=== PATIENT | female | born 1935 | race Caucasian/White ===

== ENCOUNTER 2017-02-24 14:04 | Emergency (ER) | payer MEDICARE, OTHER ==
[~2017-02-24] VITALS: Ht 162.6 cm; Wt 77.1 kg
[~2017-02-24 14:04] MED LIST: HYDROCODON-ACE1 EA10 PO; LIOTHYRONINE SO5 MCG PO
[2017-02-24] MEDS ORDERED: HYDROCODON-ACE1 EAC8 PO (18:01)
[2017-02-24] MEDS ORDERED: ONDANSETRON ODT4 MG SL (18:02)
[2017-02-24] MEDS ORDERED: AUGMENTIN 875-1 EACH PO (18:02)
== END 2017-02-24 18:18 | disposition home or self-care (01) ==
LOC: ED 14:04
DX: M54.5 Low back pain (principal); G89.29 Other chronic pain; N06.9 Isolated proteinuria with unspecified morphologic lesion; Z76.0 Encounter for issue of repeat prescription; R11.0 Nausea; E03.9 Hypothyroidism, unspecified; Z79.899 Other long term (current) drug therapy
CPT/HCPCS: 74177; 80053; 81001; 85025; 87088; 96361; 96374; 96375; 96376; 99284; J0295; J1170; J2405; J2550; J7040; Q9967

== ENCOUNTER 2020-07-17 15:50 | Emergency (ER) | payer MEDICARE, OTHER ==
[~2020-07-17] VITALS: Ht 162.6 cm; Wt 77.1 kg
[~2020-07-17 15:50] MED LIST changes: +AUGMENTIN 875-1 EACH PO; +HYDROCODON-ACE1 EAC8 PO; +ONDANSETRON ODT4 MG SL
--- NOTE | 2020-07-18 17:29 | EKG ---
[facility] [address] [place], [place] [address] Signed Normal sinus rhythm with sinus arrhythmia Inferior infarct , age undetermined Abnormal ECG When compared with ECG of 24-DEC-2015 16:46, No significant change was found Confirmed by CHAN MCDUFFIE MD ([id number]) on 07/18/2020 5:28:45 PM Electronically Signed By: CHAN MCDUFFIE MD 07/18/20 1729 PATIENT NAME: JARVISALIE RUCKER Electrocardiogram DATE OF : 35 PHYSICIAN: CHAN MCDUFFIE MD REPORT #: [id number] REPORT IS CONFIDENTIAL AND NOT TO BE RELEASED WITHOUT AUTHORIZATION
== END 2020-07-17 18:55 | disposition home or self-care (01) ==
LOC: ED 15:50
DX: R07.81 Pleurodynia (principal); G47.00 Insomnia, unspecified; R35.0 Frequency of micturition; E03.9 Hypothyroidism, unspecified; I50.9 Heart failure, unspecified; Z87.891 Personal history of nicotine dependence
CPT/HCPCS: 71045; 80053; 81001; 83735; 83880; 84443; 84484; 85025; 93005; 93010; 99285-25

== ENCOUNTER 2022-12-11 14:34 | Emergency (ER) | payer MEDICARE, OTHER ==
[~2022-12-11] VITALS: Ht 162.6 cm; Wt 72.1 kg
[2022-12-11] MEDS ORDERED: LO-DOSE ASPIRIN81 MG PO (16:18)
[2022-12-11] MEDS ORDERED: DORZOLAMIDE HCL10 ML OD (16:19)
[2022-12-11] MEDS ORDERED: TIMOLOL MALEATE5 M2 OU (16:23)
[2022-12-11] MEDS ORDERED: LATANOPROST2.5 ML OU (16:23)
[2022-12-11 18:07] VITALS: BP 145/73
== END 2022-12-11 18:09 | disposition home or self-care (01) ==
LOC: ED 14:34
DX: R60.0 Localized edema (principal); Z87.891 Personal history of nicotine dependence; Z96.653 Presence of artificial knee joint, bilateral; Z91.040 Latex allergy status; Z88.8 Allergy status to other drugs, medicaments and biological substances; Z79.82 Long term (current) use of aspirin; Z79.899 Other long term (current) drug therapy
CPT/HCPCS: 93971

== ENCOUNTER 2022-12-30 17:47 | Emergency (ER) | payer MEDICARE, OTHER ==
[~2022-12-30] VITALS: Ht 162.6 cm; Wt 72.1 kg
--- OUTSIDE RECORDS SUMMARY | ~2022-12-30 | XMS | Continuity of Care Document ---
Demographics + + + | Address | [address] | | | [place] [address] | + + + | Preferred Language | Unknown | + + + | Marital Status | | + + + | Hoahaoism Affiliation | Unknown | + + + | Race | White | + + + | Ethnic Group | Not or | + + + Author + + + | Author | [facility] | + + + | Organization | [facility] | + + + | Address | [address] | | | [place] [address] | + + + | Phone | | + + + Care Team Providers + + + + | Care Cargo Broker Name | Role | Phone | + + + + Unavailable | Unavailable | + + + + Allergies No information. Encounters No information. Functional Status No information. Immunizations No information. Medications No information. Problems + + + + | date | description | facility | + + + + | 2022-12-11 14:35 | OTHER SPECIFIED SOFT | [facility] | | | TISSUE DISORDERS | | + + + + | 2022-12-11 14:35 | LOCALIZED EDE[facility] | [facility] | + + + + | 2022-12-11 14:35 | CLINICAL PROGRAM COORDINATOR (CURRENT) USE OF | [facility] | | | ASPIRIN | | + + + + | 2022-12-11 14:35 | OTHER SENIOR LIVING (CURRENT) | [facility] | | | DRUG THERAPY | | + + + + | 2022-12-11 14:35 | PERSONAL HISTORY OF | [facility] | | | NICOTINE DEPENDENCE | | + + + + | 2022-12-11 14:35 | ALLERGY STATUS TO OTH | [facility] | | | DRUG/MEDS/BIOL SUBST STATUS | | | | | | + + + + | 2022-12-11 14:35 | LATEX ALLERGY STATUS | [facility] | + + + + | 2022-12-11 14:35 | PRESENCE OF ARTIFICIAL | [facility] | | | KNEE JOINT, BILATERAL | | + + + + Procedures No information. Results/Labs No information. Social History +--------+ + + | date | description | facility | +--------+ + + Vital Signs No information."
[~2022-12-30 17:47] MED LIST changes: +DORZOLAMIDE HCL10 ML OD; +LATANOPROST2.5 ML OU; +LO-DOSE ASPIRIN81 MG PO; +TIMOLOL MALEATE5 M2 OU
[2022-12-30 18:19] LABS: BASOPHILS 0.3 % (0-2); EOSINOPHILS 0.1 % (0-6); HEMATOCRIT 37.4 % (35.0-50.0); HEMOGLOBIN 12.4 g/dL (12.0-18.0); LYMPHOCYTES 4.3 % (24-44); MCH 28.3 (27-36); MCHC 33.1 g/dl (30-36); MCV 85.5 fl (81-99); MONOCYTES 7.4 % (0-12); NEUTROPHILS 87.9 % (39-80); PLATELET COUNT 218 K/uL (140-440); RBC 4.37 M/ul (4.3-5.7); RDW 15.3 (10.5-15.0)
[2022-12-30 18:34] LABS: ALBUMIN 3.5 g/dL (3.4-5.0); ALBUMIN/GLOBULIN RATIO 1.06 (1.1-2.4); ANION GAP 12.5 (7-21); BILIRUBIN, TOTAL 0.6 ng/dL (0.2-1.0); BUN/CREATININE RATIO 17.2 (6.0-28.6); CALCIUM 9.2 mg/dL (8.5-10.1); CREATININE, SERUM 0.93 mg/dL (0.55-1.02); POTASSIUM 3.5 mmol/L (3.5-5.1); PROTEIN, TOTAL 6.8 g/dL (6.4-8.2)
[2022-12-30 18:37] LABS: LACTIC ACID, BLOOD 0.9 mmol/L (0.4-2.0)
--- OUTSIDE RECORDS SUMMARY | 2022-12-30 18:37 | XMS ---
PreManage Notification: ALIE CONLEY Security Franchise Manager Events No recent Security Events currently on file CRITERIA MET - [facility] - 2 Visits in 30 Days CARE PROVIDERS There are no care providers on record at this time. Aliza has no Care Guidelines for this patient. Urszula VISIT COUNT (12 MO.) 2 [facility] TOTAL 2 NOTE: Visits indicate total known visits. ED/C VISIT TRACKING (12 MO.) 12/30/2022 17:48 [facility] [place] TYPE: Emergency COMPLAINT: - FLU SYMPTOMS 12/11/2022 14:[address] [facility] [place] TYPE: Emergency COMPLAINT: - POST OP PROBLEM DIAGNOSES: - Allergy status to other drugs, medicaments and biological substances - Latex allergy status - Localized edema - jail (current) use of aspirin - Other intermediate (current) drug therapy - Other specified soft tissue disorders - Personal history of nicotine dependence - Presence of artificial knee joint, bilateral INPATIENT VISIT TRACKING (12 MO.) No inpatient visits to display in this time frame [id number]
[2022-12-30 18:59] LABS: INFLUENZA B NAA NEGATIVE (NEGATIVE); RESPIRATORY SYNCYTIAL VIR NAA NEGATIVE (NEGATIVE)
[2022-12-30 21:13] LABS: BILIRUBIN, URINE NEGATIVE (negative); BLOOD/HGB, URINE SMALL (Negative); KETONE, URINE NEGATIVE (Negative); LEUK ESTERASE, URINE NEGATIVE (negative); NITRITE, URINE NEGATIVE (negative)
[2022-12-30 21:18] LABS: HEMATOCRIT 33.1 % (35.0-50.0); HEMOGLOBIN 11.1 g/dL (12.0-18.0); MCH 28.4 (27-36); MCHC 33.4 g/dl (30-36); RBC 3.89 M/ul (4.3-5.7); RDW 14.8 (10.5-15.0)
[2022-12-30 21:23] LABS: BACTERIA, URINE RARE /hpf (negative); CASTS, URINE NONE SEEN \\lpf; COLLECTION TYPE, URINE CLEAN CATCH; CRYSTALS, URINE NONE SEEN (0-1+); EPITHELIAL CELLS, URINE SQUAMOUS 1+ /lpf (0-1+); REFLEX CULTURE, URINE No (No)
[2022-12-30] MEDS ORDERED: PAXLOVID 300-11 EACH PO (21:59)
[2022-12-30] MEDS ORDERED: CYCLOBENZAPRINE10 MG PO (22:00)
[2022-12-30] MEDS ORDERED: ONDANSETRON ODT8 MG PO (22:00)
[2022-12-30 22:30] VITALS: BP 106/52
== END 2022-12-30 22:30 | disposition home or self-care (01) ==
LOC: ED 17:47
PROVIDERS: Emergency Medicine; Family Medicine
DX: U07.1 COVID-19 (principal); E03.9 Hypothyroidism, unspecified; I50.9 Heart failure, unspecified; Z87.891 Personal history of nicotine dependence; Z88.8 Allergy status to other drugs, medicaments and biological substances; Z91.040 Latex allergy status; Z79.82 Long term (current) use of aspirin
CPT/HCPCS: 36415; 71045; 80053; 81001; 83605; 85025; 85027; 87502; 96374; 96375; 99284-25; A9270; C9803; J1885; J2405; J7121; U0002

== ENCOUNTER 2024-03-25 17:23 | Inpatient (IN) | payer MEDICARE, OTHER ==
[~2024-03-25] VITALS: Ht 162.6 cm; Wt 72.7 kg
[~2024-03-25 17:23] MED LIST changes: +CYCLOBENZAPRINE10 MG PO; -DORZOLAMIDE HCL10 ML OD; +DORZOLAMIDE HCL10 ML OU; +ONDANSETRON ODT8 MG PO; +PAXLOVID 300-11 EACH PO
[2024-03-25] MEDS ORDERED: fentaNYL citrate 100 MCG/2 ML VIAL ONE (17:29)
[2024-03-25 17:44] LABS: BASOPHILS 0.9 % (0-2); HEMATOCRIT 40.3 % (35.0-50.0); HEMOGLOBIN 13.7 g/dL (12.0-18.0); LYMPHOCYTES 28.6 % (24-44); MCH 29.7 (27-36); MCV 87.5 fl (81-99); MONOCYTES 8.2 % (0-12); NEUTROPHILS 60.3 % (39-80); PLATELET COUNT 213 K/uL (140-440); RDW 13.6 (10.5-15.0)
[2024-03-25] MEDS ORDERED: fentaNYL citrate 100 MCG/2 ML VIAL IV ONE (17:45)
[2024-03-25 17:48] LABS: INR 0.99 (0.80-1.30); PROTIME 12.6 Sec (11.2-14.2)
[2024-03-25 18:01] LABS: ALBUMIN 3.7 g/dL (3.4-5.0); ALBUMIN/GLOBULIN RATIO 1.16 (1.1-2.4); ANION GAP 12.6 (7-21); BILIRUBIN, TOTAL 0.6 ng/dL (0.2-1.0); BUN/CREATININE RATIO 24.09 (6.0-28.6); CALCIUM 9.1 mg/dL (8.5-10.1); CREATININE, SERUM 0.83 mg/dL (0.55-1.02); POTASSIUM 3.6 mmol/L (3.5-5.1); PROTEIN, TOTAL 6.9 g/dL (6.4-8.2)
[2024-03-25] MEDS ORDERED: LABETALOL HCL 20 MG/4 ML VIAL IV ONE ×2 (18:15→19:15)
[2024-03-26] MEDS ORDERED: MORPHINE SULFATE 4 MG/ML VIAL IV ONE (00:45)
[2024-03-26] MEDS ORDERED: ondansetron HCL 4 MG/2 ML VIAL IV ONE (00:45)
[2024-03-26] MEDS ORDERED: D5%-NACL 0.9% 20 KCL 1,000 ML IV SCH (07:15)
[2024-03-26] MEDS ORDERED: SODIUM CHLORIDE 0.9% 500 ML IV PRN (07:15)
[2024-03-26] MEDS ORDERED: HYDROCODON-ACE1 EA10 PO (08:11)
[2024-03-26] MEDS ORDERED: EZETIMIBE10 MG PO (09:39)
--- NOTE | 2024-03-26 10:15 | NUR ---
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 PATIENT HAS BEEN IN ER SINCE 03/25 EVENING. NOW ON COMFORT CARE. IVF DC'D. MONITOR DC'D. FAMILY MEMBERS ARE IN ROOM. UPON ADMIT PATIENT NON-VERBAL, ABLE TO FOLLOW SOME COMMANDS. LEFT SIDE IS STIFF, NOT ABLE TO MOVE LEFT SIDE. PUREWICK IS IN PLACE. HAVING BILE EMESIS ON ADMIT. TURNED ON LEFT SIDE. YANKER TIP WITH SUCTIONED USED. HAS OCC COUGH. ADMISSIONS PROCESS FOR COMFORT CARE STARTED. ORAL CARE GIVEN.
[2024-03-26] MEDS ORDERED: PROCHLORPERAZINE MALEATE 10 MG TAB PO PRN (11:00)
[2024-03-26] MEDS ORDERED: ARTIFICIAL TEARS 15 ML BTL OU PRN (11:00)
[2024-03-26] MEDS ORDERED: MORPHINE SULFATE 4 MG/ML VIAL IV PRN (11:00)
[2024-03-26] MEDS ORDERED: ATROPINE SULFATE 1% OPTH DROPS SL PRN (11:00)
[2024-03-26] MEDS ORDERED: LORazepam 2 MG/ML VIAL IV PRN (11:00)
[2024-03-26] MEDS ORDERED: fentaNYL citrate 100 MCG/2 ML VIAL IV PRN (11:00)
[2024-03-26] MEDS ORDERED: SCOPOLAMINE 1 MG/3 DAYS PATCH 1 EACH TDSY TD SCH (11:29)
[2024-03-26 11:32] VITALS: BP 136/88
[2024-03-26] MEDS ORDERED: PHARMACY RENAL DOSE ADJUSTMENT 1 DOSE MISC PO SCH (12:00)
[2024-03-26] MEDS ORDERED: ondansetron HCL 4 MG/2 ML VIAL IV PRN (12:45)
--- NOTE | 2024-03-26 12:45 | NUR ---
FENTANYL 25 MCG IV GIVEN FOR COMFORT AND SCOPOLMINE PATCH APPLIED BEHIND RIGHT EAR.
[2024-03-26] MEDS ORDERED: PROCHLORPERAZINE EDISYLATE 10 MG/2 ML VIAL IV PRN (13:00)
--- NOTE | 2024-03-26 13:10 | NUR ---
ZOFRAN 4 MG IV GIVEN.
--- NOTE | 2024-03-26 13:30 | NUR ---
REPOSITIONED TO RIGHT SIDE. UPON TURNING, HAD BILE GREEN EMESIS. TWO NURSING STAFF IN ROOM. LUKE SUCTIONED USED. AFTER THIS VOMITING EPISODE, TURNED BACK LEFT SIDE. NO CHANGES IN NEURO STATUS.
--- NOTE | 2024-03-26 14:26 | NUR ---
SLEEPING. NO DISTRESS NOTED. PATIENT SON AND DAUGHTER ARE IN ROOM.
[2024-03-26] MEDS ORDERED: ACETAMINOPHEN 650 MG SUPP PR PRN (18:30)
--- NOTE | 2024-03-26 19:00 | NUR ---
REPORT TO NEXT SHIFT. FAMILY IN ROOM. TYLENOL SUPP GIVEN FOR FEVER. NO FUTHER EMESIS SINCE THIS AFTERNOOM. FREQ ORAL CARE GIVEN. PURE WICK IN PLACE.
--- NOTE | 2024-03-26 20:35 | NUR ---
PATIENT ON ROUNDING NOTED TO BE RESTLESS, TENSE, GRIMACE NOTED, ASKED PATIENT IF SHE FELT PAINFUL AND WOULD LIKED PAIN, ANXIETY AND NAUSEA MEDICATION, PATIENT NODDED YES, SEE EMAR FOR PRNS ADMINISTERED. ALSO PATIENT NOTICED TO HAVE PURWICK OUT OF POSITION AND URINE ON INCONTINENT PAD UNDER HER, PATIENT TURNED CLEANED AND NEW PURWICK PLACED. PATIENT NOTED TO BE MORE COMFORTABLE AND THIS TIME AFTER MEDICATIONS, SHE IS RELAXED POSITION, NO LONGER RESLESS AND TENSE, NO GRIMACE NOTED.
--- NOTE | 2024-03-26 21:45 | NUR ---
PATIENT RESTING IN BED, RELAXED POSITION, NO RESTLESSNESS, AGITATION, OR GRIMACE NOTED AT THIS TIME. FAMILY IN ROOM. RR 20/MIN SHALLOW.
--- NOTE | 2024-03-26 23:15 | NUR ---
PATIENT RESTING QUIETLY IN BED. NO RESTLESSNESS, NO GRIMACE, EYES CLOSED 93% OXYGEN SATURATION ON ROOM AIR. DAUGHTER IS SLEPING IN RECLINER AND SON IS SLEEPING ON COUCH.
--- NOTE | 2024-03-27 01:33 | NUR ---
ROUNDING ON PATIENT, PATIENT NODDED HER HEAD "YES" WHEN ASKED IF SHE COULD HEAR THIS RN TALKING TO HER, SHE SHOOK HER HEAD NO WHEN ASKED IF SHE WAS IN PAIN. SON AT BEDSIDE HOLDING PATIENTS HAND AGREES WITH INTERACTIONS. PATIENT DOES CONTINUE TO HAVE A 99.7 F. TEMPERATURE TEMPORAL.
--- NOTE | 2024-03-27 02:05 | NUR ---
PATIENT SON'S CAME OUT TO NURSES STATION TO REPORT PATIENT IS BREATHING DIFFERENT AND MORE RESTLESS. THIS RN INTO ADMINISTER PAIN, ANXIETY AND NAUSEA MEDICATIONS, WELL TYLENOL SUPPOSITORY FOR FEVER 99.7 F.
--- NOTE | 2024-03-27 04:23 | NUR ---
ROUNDING ON PATIENT NOTED RESPIRATORY RATE 24/MIN PATIENT WORK ON BREATHING ALSO INCREASED. PATIENT ADMINISTERED MORPHINE FOR AIR HUNGER. PATIENT FAMILY IN ROOM AND ALERT OT RN IN ROOM, EXPLAIN EXPECTATIONS AND CHANGES PATIENT PROGRESSES TO END OF LIFE.
--- NOTE | 2024-03-27 07:05 | NUR ---
PATIENT RESTING IN BED NO DISTRESS NOTED, NO RESPIRATORY DISTRESS, FAMILY AT BEDSIDE, THEY AGREE PATIENT LOOKS COMFORTABLE AT THIS TIME.
--- NOTE | 2024-03-27 07:38 | NUR ---
UR CLINICAL REVIEW: 2MN LUCIANA- MEETS INPT FOR INTRACRANIAL HEMORRHAGE MEDICARE INPT 03/26/24 @ 0938 ORDER MATCHES REG NO AUTH REQUIRED PER MEDICARE RULES CARE WITHDRAWN, DC PLAN PENDING.
--- NOTE | 2024-03-27 07:45 | NUR ---
REPORT RECIVED FROM LICENSE DISTRIBUTOR RN. PATIENT RESTING IN BED WITH SON AND DAUGHTER AT THE BEDSIDE. PATIENT RR EVEN AND UNLABORED AT THIS TIME. COMFORT CARE CART PROVIDED FOR FAMILY TO HAVE FOOD/DRINKS.
[2024-03-27] MEDS ORDERED: LORazepam 2 MG/ML VIAL IV PRN (08:00)
--- NOTE | 2024-03-27 08:47 | NUR ---
THIS RN IN TO CHECK ON PATIENT. PATIENT RESTING. REVIEWED PLAN FO CARE WITH MD. MD ADJUSTED PRN MEDICATIONS AND ORDERED A FENTANYL PATCH FOR CONTINUOUS COMFORT. UPDATED PATIETNS SON JORDYN. ALL QUESTIONS ANSWERED. FAMILY DENIES ANY NEEDS AT THIS TIME.
[2024-03-27] MEDS ORDERED: fentaNYL citrate 100 MCG/2 ML VIAL SUB-Q SCH (09:00)
[2024-03-27] MEDS ORDERED: FENTANYL 50 MCG/HR 1 EA TDSY TD SCH (09:00)
--- NOTE | 2024-03-27 09:23 | NUR ---
Upon arrival to the room, I fine Lalita in bed with eyes closed, respirations even and unlabored, RA sats at 90%. Son in room with patient. Lalita lives with her Shivam at home, and prior to this incident had been completely independant, even driving from [employer] to [place] on the date of this occurrence. Pt has been changed to comfort care, and I have initiated the option of hospice to Lalita's son, Pavel. Pavel is concerned that his dad would not be able to provide the hospice care in the home, he has questioned if this is something that could happen in his (Pavel's) home if he could get FMLA at his place of employment ([employer]). Pavel will have the discussion with his father today. He also has a sister and 2 step sisters (Lalita's daughters) who do not live locally. Pavel will talk to his sisters about the option of helping with care in the home for hospice care. He is open to looking for ways to make this happen for his mother. Pavel also comments that he feels his mothers care has been very good while she has been in the hospital.
--- NOTE | 2024-03-27 09:45 | NUR ---
PATIENT FENTANYL PATCH WAS APPLIED TO LEFT CHEST. PATIENTS FAMILY AT THE BEDSIDE. UPDATED ON PLAN OF CARE. PATIENT RESTING ON SIDE AT THIS TIME. PATIENT RR EVEN AND UNLABORED.
--- NOTE | 2024-03-27 10:50 | NUR ---
Received a call from [facility], they are able to accept [place] into their care services, possibly as early as tomorrow. Updated son who remains in the room and he will talk to family members regarding this transition to hospice care.
--- NOTE | 2024-03-27 12:15 | NUR ---
THIS RN IN TO GIVE PRN ATIVAN. PATIENT FLICKING HER ARM AND RR INCREASED. PATIENT APPEARS RESTLESS. FAMILY REQUESTED SOMETHING FOR RESTLESSNESS. PRN ZOFRAN GIVEN AT THIS TIME WELL AND PATIENT REPOSITIONED. FAMILY REQUESTED TO HAVE [facility] COME BACK AND DISCUSS DISCHARGE OPTIONS WITH ALL OF THEM NOW THAT THEY ARE ALL AT THE BEDSIDE.
--- NOTE | 2024-03-27 12:31 | NUR ---
In to see family members per request to discuss options and plan for discharge to home on hospice. Shivam, and a son and daughter are in the room. Everyone agrees that they are willing to take the patient home to [place] for hospice care. This will happen tommorow, and hospice is updated. Halle at [facility] states that they will do the intake on the paitent between 12 and 1 tommorow, and it will be arranged by Hospice to have the hospital bed, bedside table, and oxygen delivered to the home prior to admission. Questions answered with family, and family denies further questions at this time. They do confirm that they will have family and family or friends in the home at all times while Lalita is on Hospice care.
--- NOTE | 2024-03-27 12:45 | NUR ---
CALLED [facility] AND SCHEDULED TRANSPORTATION VIA STRETCHER [facility]ANT TO HOME AT 1500. CALLED AND NOTIFIED RYAN AT [facility] OF TRANSPORT TIME. STATES THEY WILL MAKE THAT WORK. FAMILY UPDATED BY Janny STALLINGS RN.
--- NOTE | 2024-03-27 12:48 | NUR ---
DR. MARISCAL UPDATED WITH DC PLAN.
--- NOTE | 2024-03-27 14:30 | NUR ---
PATIENT FAMILY AT THE BEDSIDE. STAFF VISITED WITH AHM[facility] SUN AND ARRANGING PLANS FOR DISCHARGE WITH HOSPICE. FAMILY IS ALLAGREEABLE WITH PLAN OF CARE.
--- NOTE | 2024-03-27 16:15 | NUR ---
THIS RN AT THE BEDSIDE WITH PATIENT. PATIENT NOTED TO HAVE A FEVER. PRN SUPPOSITORY ADMISINTERED AND PATIENT REPOSITIONED WITH RN ASSIST. PATIENTS FAMILY AT THE BEDSIDE AND EDUCATED ON TURNING AND MEDICATIONS. PATIENTS FAMILY WILL BE TAKING PATIENT HOME TOMORROW WITH HOSPICE CONSULT AND WILL BE PROVIDING CARES TO PATIENT.
--- NOTE | 2024-03-27 18:27 | NUR ---
PATIENT SNORING MORE SINCE LAST DOSE OF PAIN MEDICATION. PATIENTS MIRA COBB REMAINS AT THE BEDSIDE AND PROVIDED WITH DINNER. PATIENT SON HAS BEEN PROVIDING PATIENT WITH CHAPSTICK AND MOUTH SWABS TO MOISTEN MOUTH.
--- NOTE | 2024-03-27 19:50 | NUR ---
handoff report received from day shift RN. patient resting in bed with eyes closed, respirations even and unlabored. patient son and daughter at bedside. no needs at this time.
--- NOTE | 2024-03-27 22:20 | NUR ---
patients son states patient seems to be getting more restless. PRN pain and nausea medication administered per EMAR. Fentanyl patch remains on left side of chest. no further needs at this time. call light within reach.
--- NOTE | 2024-03-27 23:05 | NUR ---
patient noted to have temp of 100.8. Tylenol suppository administered per EMAR. patient repositioned in bed. son remains at bedside and agrees patient looks comfortable at this time. no further needs, call light within reach.
--- NOTE | 2024-03-28 01:00 | NUR ---
patient resting in bed with eyes closed, respirations even and unlabored. no distress noted. no restlessness noted. patient appears to be comfortable. patient son resting in recliner, daughter resting on couch. call light within reach.
--- NOTE | 2024-03-28 03:52 | NUR ---
patient noted to be restless and have an increased heart rate. patient given PRN Morphine per EMAR. patient family remains at bedside. no further needs at this time. call light in reach.
--- NOTE | 2024-03-28 06:15 | NUR ---
patient repositioned in bed. hernando care completed and new purewick placed. no distress noted. patient son and daughter remain at bedside. no further needs at this time. call light within reach.
--- NOTE | 2024-03-28 07:30 | NUR ---
REPORT RECIVED FROM SEALING AND CANCELING MACHINE OPERATOR RN. PATIENT RESTING IN BED WITH HER SON AND DAUGHTER AT THE BEDSIDE. FAMILY PROVIDED WITH MEAL VOUCHER. CALL FROM [facility] LAST NIGHT AND WANTED TO KNOW IF THEY COULD CHANGE THE TIME. CASE MANAGEMENT UPDATED AND WILL FOLLOW UP AND UPDATE FAMILY.
--- NOTE | 2024-03-28 08:08 | NUR ---
[facility]LE TO TRANSPORT PATIENT EARLIER. CHANGED TRANSPORT TIME TO 1300 TODAY. RYAN AT [facility] ALSO UPDATED.
--- NOTE | 2024-03-28 10:19 | NUR ---
PATIENT RIGHT ARM AND LEG RESTLESS AND FIDGITING, PATIENT UNABLE TO FOLLOW COMMANDS. PATIENT GIVEN PRN MORPHINE. PATIENT ALSO NOTED TO BE HAVING SOME RATTELING IN HER THROAT. UPDATED FAMILY ON EXPECTED FINDINGS. PROVIDED PATIENT WITH DROPS IN HER MOUTH FOR RATTELING. PATIENT RR INCREASED AND PATIENT BREATHING HEAVIER WHILE RN WAS PRESENT AND ATIVAN DID NOT HAVE MUCH IMPROVEMENT ON HER WORK OF BREATHING. PRN MORPHINE WAS GIVEN. FAMILY UPDATED ON PLANS FOR GOING HOME AND ASSISTING WITH A [facility] TRANSITION.
--- NOTE | 2024-03-28 12:03 | NUR ---
REVIEWED PLAN OF CARE AND DISCHARGE WITH SON AT THE BEDSIDE. WILL CHANGE PATIENT AND REMOVE IVS AROUND 1230 TO HAVE PATIENT READY FOR TRANSPORT.
--- NOTE | 2024-03-28 12:52 | NUR ---
IN TO CHANGE PATIENT, BED BATH DONE, ATTENDS CHANGED, AND NEW DRAW SHEET AND PAD PLACED. PRN MEDICATIONS ADMINISTERED. IVS DCD.
--- NOTE | 2024-03-28 13:15 | NUR ---
PATIENT TRANSFERED TO [facility] WITH RN AND STAFF ASSIT. PATIENT IVS DCD PRIOR TO DC. PATIENT BELONGINGS SENT WITH FAMILY. PATIENT LEAVING AT THIS TIME WITH MEDICAL TRANSPORT AND WILL BE MEETING FAMILY AT HER HOME. PATIENT LEFT WITH FENTANYL PATCH AND SCOPOLOMIN PATCH IN PLACE. ALL QUESTIONS ANSWERED. NO OTHER NEEDS A TTHIS TIME. PATIENTS MIRA COBB LEFT WITH PATIENT.
[2024-03-30] MEDS ORDERED: fentaNYL 1 EACH TDSY TD SCH (09:00)
== END 2024-03-28 13:15 | disposition hospice, home (50) | DRG 64 ==
LOC: ED 17:23 → CCU 03-26 09:38
PROVIDERS: Emergency Medicine; ADMIT Internal Medicine; ATTEND Internal Medicine
PROC: 5A1935Z Respiratory Ventilation, Less than 24 Consecutive Hours (ICD-10-PCS; principal; 2024-03-26)
PROC: 0BH17EZ Insertion of Endotracheal Airway into Trachea, Via Natural or Artificial Opening (ICD-10-PCS; 2024-03-26)
DX: I61.4 Nontraumatic intracerebral hemorrhage in cerebellum (principal); G93.6 Cerebral edema; I25.10 Atherosclerotic heart disease of native coronary artery without angina pectoris; Z66 Do not resuscitate; Z96.653 Presence of artificial knee joint, bilateral; I11.0 Hypertensive heart disease with heart failure; I50.9 Heart failure, unspecified; E03.9 Hypothyroidism, unspecified; H40.9 Unspecified glaucoma; Z96.649 Presence of unspecified artificial hip joint; Z91.040 Latex allergy status; Z88.8 Allergy status to other drugs, medicaments and biological substances; Z51.5 Encounter for palliative care; Z87.891 Personal history of nicotine dependence; Z90.49 Acquired absence of other specified parts of digestive tract; Z90.89 Acquired absence of other organs; Z90.710 Acquired absence of both cervix and uterus; Z98.890 Other specified postprocedural states; Z79.82 Long term (current) use of aspirin; Z79.891 Long term (current) use of opiate analgesic; Z79.899 Other long term (current) drug therapy
CPT/HCPCS: 31500; 36415; 51798; 70450; 70496; 70498; 71045; 80053; 82803; 84484; 85025; 85610; 85730; 93005; 93010; 99291; A9270; J0780; J2060; J2270; J2405; J3010; J3480; J7040; Q3014; Q9967